=== PATIENT | female | born 1985 | race Caucasian/White ===

== ENCOUNTER 2019-04-30 20:41 | Emergency (ER) | payer OTHER, SELFPAY ==
[~2019-04-30 20:41] MED LIST: Iopamidol 370 76% 100 ML VIAL ONE; Iopamidol 370 76% 50 ML VIAL FS ONE
[2019-04-30] MEDS ORDERED: Ondansetron PF 4 MG/2 ML Vial ONE (21:17)
[2019-04-30] MEDS ORDERED: Ketorolac Tromethamine 30 MG/ML VIAL ONE (21:17)
[2019-04-30] MEDS ORDERED: Morphine 4 MG/ML VIAL ONE ×2 (21:17→22:31)
[2019-04-30 21:20] LABS: #Eosinphils 0.1 thou/uL (0.0-0.7); #Lymphocytes 1.3 thou/uL (1.20-3.40); #Monocytes 1.1 thou/uL (0.11-0.59); #Neutrophils 12.9 thou/uL (1.40-6.50); %Basophils 0.1 % (0.0-1.0); %Eosinophils 0.7 % (0.0-10.0); %Lymphocytes 8.3 % (21.0-51.0); %Neutrophils 83.9 % (42.0-75.0); Hemoglobin 13.6 g/dL (12.0-16.0); Mean Corpuscular HGB CONC 33.7 g/dL (32.0-36.0); Mean Corpuscular Volume 91.9 fL (78.0-98.0); Platelet Count 161 thou/uL (130-400); Red Blood Cell (RBC) Count 4.38 mill/uL (4.20-5.40); White Blood Cell (WBC) Count 15.4 thou/uL (4.8-10.8)
[2019-04-30 21:32] LABS: Bilirubin Negative (Negative); Blood, Urine Negative (Negative); Clarity Clear (Clear); Glucose, Urine (Dipstick) Normal (Negative); Leukocyte Negative Leu/uL (Negative); Nitrite Negative (Negative); Protein, Urine (Dipstick) Negative (Neg-Trace); Urobilinogen Normal mg/dL (Less than 2)
[2019-04-30 21:33] LABS: Pregnancy Test - Urine (BHCG) Negative (Negative); Pregu Control Background? CLEAR/WHITE (CLR/WHITE); Pregu Control Bar Appear? YES (CONTROL BAR); Specific Gravity 1.013 (1.002-1.036)
[2019-04-30 21:37] LABS: ALT (SGPT) 16 U/L (8-55); AST (SGOT) 19 U/L (5-34); Albumin 4.5 g/dL (3.5-5.0); Alkaline Phosphatase 55 U/L (40-110); Anion Gap 14 mmol/L (10-20); BUN (Urea Nitrogen) 12 mg/dL (7.0-18.7); Calc. Creatinine Clearance 0 mL/min (70-130); Carbon Dioxide 22 mmol/L (22-29); Chloride 103 mmol/L (98-107); Estimated GFR-MDRD Greater than 90; Globulin 2.7 g/dL (2.4-3.5); Glucose 91 mg/dL (70-105); Lipase 12 U/L (8-78); Potassium 3.5 mmol/L (3.5-5.1); Protein, Total 7.2 g/dL (6.0-8.3); Sodium 135 mmol/L (136-145)
--- NOTE | 2019-04-30 22:24 | ULT ---
EXAM: Pelvic ultrasound HISTORY: Infraumbilical abdominal pain 4 5 hours COMPARISON: None TECHNIQUE: Multiple grayscale and color Doppler images were obtained in a transabdominal pelvic ultra sound. Spectral analysis of the Doppler waveforms of the ovaries were performed. FINDINGS: CERVIX: No evidence of nabothian cysts. UTERUS: Normal in size without focal abnormality. ENDOMETRIAL STRIPE: 10 mm. A small amount of free fluid is seen in the pelvis. RIGHT OVARY: Normal flow without focal mass. LEFT OVARY: Normal flow without focal mass. IMPRESSION: No significant pelvic abnormality
[2019-05-01] MEDS ORDERED: HYDROcodone/Acetaminophen 5/325 mg Tablet ONE (01:05)
--- NOTE | 2019-05-01 07:51 | CT ---
PRELIMINARY REPORT/[facility]/EMERGENCY AFTER-HOURS PROCEDURE: CT ABDOMEN PELVIS W CON History: ER 6...33yo F presenting today with abdominal pain that started about 4hours [employer]. Patient st ates that it started out as "ovarian pain" that happens when she ovulates but it has gotten progressively worse. She states that it is worse in right and lower abdomen, but has started to radia te to the RUQ. Her LMP was 2 weeks ago. She denies any NVD. Endorses vaginal discharge. Endorses fever. Denies vaginal bleeding, dysuria, burning, itching or vaginal irritation. Denies hx of STDs. S tates heat made it better. Movement makes it worse Comparison: None Findings: Breast implants are partially imaged. Dependent changes in the lung bases. Cardiac size within normal limits. Abdominal aorta is normal in caliber. No acute vascular abnorma lity. Circumaortic left renal vein. Fluid within the endometrium. Follicular changes of the ovaries, with small amount of free fluid in the cul-de-sac. Urinary bladder is mildly distended and o therwise unremarkable. No evidence of hydronephrosis bilaterally. Kidneys enhance symmetrically. Small left renal cyst. Liver, gallbladder, spleen, pancreas and adrenal glands are unremarkable. Th e appendix is normal in caliber and is not inflammatory. No evidence of small bowel obstruction or free intraperitoneal air. There is mild wall thickening of small bowel loops in the left midabdomen. Subcentimeter mesenteric lymph nodes are nonspecific. Moderate stool in proximal colon. No evidence of pericolonic inflammation or acute diverticulitis. No acute osseous abnormality. Impression: 1. No CT evidence of acute appendicitis, bowel obstruction or acute diverticulitis. Mild wall thick ening of a few small bowel loops in the left midabdomen with subcentimeter mesenteric lymph nodes. Enteritis is not excluded in the appropriate clinical setting. 2. Small amount of free fluid in the cul-de-sac. Follicular changes of the ovaries. Minimal fluid within the endometrium. If concern persists for pelvic etiology of pain, consider ultrasound. 3. Additional findings, as above. Followup per final report recommendations. ELECTRONICALLY SIGNED BY: Javi Shen DO May 01, 2019 12:37:40 AM CDT FINAL REPORT EMERGENCY AFTER HOURS CT ABDOMEN AND PELVIS WITH IV CONTRAST: HISTORY: Right lower quadrant abdominal pain with radiation of pain to right upper quadrant. IMPRESSION: 1. No CT evidence of appendicitis. 2. Small amount of free fluid in the cul-de-sac. Fluid is also seen within the endometrial canal. Fin dings could be related to stage of the patient's menstrual cycle. Depending on clinical concern, a pelvic ultrasound may be helpful for further evaluation. 3. Subcentimeter too small to characterize hypodense lesion inferior pole left kidney statistically l ikely representing a cyst. 4. Findings are agreement with preliminary report by [facility]. Transcribed Date/Time: 05/01/2019 8:31 AM
[2019-05-02 19:49] LABS: Chlamydia by PCR Not Detected (NotDetected); GC by PCR Not Detected (NotDetected)
== END 2019-05-01 01:15 | disposition home or self-care (01) ==
LOC: ERS 20:41
DX: K52.9 Noninfective gastroenteritis and colitis, unspecified (principal); I88.9 Nonspecific lymphadenitis, unspecified
CPT/HCPCS: 74177; 76856; 80053; 81003; 81025; 83690; 85025; 87480; 87491; 87510; 87591; 87660; 96361; 96374; 96375; J1885; J2270; J2405; Q9967